=== PATIENT | female | born 1970 | race Caucasian/White ===

== ENCOUNTER 2016-12-06 21:25 | Emergency (ER) | payer SELFPAY ==
[2016-12-06 21:35] VITALS: BP 178/101; PULSE 95; RESP 20; TEMP 98.1; O2SAT 100
[2016-12-06] MEDS ORDERED: Lidocaine 2% Inj (20ml) INFIL ONE (22:08)
--- NOTE | 2016-12-06 22:51 | C.PDOC ---
History Of Present Illness 46 year old female presents to the ED for evaluation status post trip and fall one hour prior to arrival. Patient states she tripped over an uneven curb and hit her face, sustaining a laceration to nose, abrasion to left eyebrow, and began to have a nose bleed. She denies LOC, nausea, vomiting, dizziness, neck pain, or other injuries. Time Seen by Provider: 12/06/16 21:54 Chief Complaint (Nursing): ENT Problem History Per: Patient History/Exam Limitations: None Onset/Duration Of Symptoms: Hrs (1 hour [employer] ) Current Symptoms Are (Timing): Still Present Anticoagulant/Antiplatlet Use?: No Recent Aspirin Use: No Past Medical History Reviewed: Historical Data, Nursing Documentation, Vital Signs Vital Signs: Last Vital Signs Temp 98.1 F 12/06/16 21:28 Pulse 95 H 12/06/16 21:28 Resp 20 12/06/16 23:56 BP 178/101 H 12/06/16 21:28 Pulse Ox 100 12/07/16 01:11 - Medical History PMH: HTN Family History: States: Unknown Family Hx - Social History Hx Alcohol Use: No Hx Substance Use: No - Immunization History Hx Tetanus Toxoid Vaccination: No Hx Influenza Vaccination: No Hx Pneumococcal Vaccination: No Review Of Systems Constitutional: Negative for: Fever, Chills Eyes: Negative for: Vision Change ENT: Positive for: Other (nose bleed ) Gastrointestinal: Negative for: Nausea, Vomiting Skin: Positive for: Other (laceration to nose and abrasion above left eyebrow ) Neurological: Negative for: Dizziness Physical Exam - Physical Exam Appears: Non-toxic, No Acute Distress Skin: Warm, Dry Head: Abrasion (2 cm abrasion above left eyebrow ), Laceration (2 cm laceration to nasal bridge) Eye(s): bilateral: Normal Inspection, PERRL, EOMI Ear(s): Bilateral: Normal Nose: Epistaxis (bilateral nares ) Oral Mucosa: Moist Throat: Normal, No Erythema, No Exudate Neck: Normal ROM, No Midline Cervical Tenderness, No Paracervical Tenderness, Supple Chest: Symmetrical, No Deformity Cardiovascular: Rhythm Regular, No Murmur Respiratory: No Rales, No Rhonchi, No Wheezing Extremity: Normal ROM, No Tenderness, No Swelling Neurological/Psych: Oriented x3, Normal Speech, Normal Cranial Nerves, Normal Motor, Normal Sensation Gait: Steady ED Course And Treatment O2 Sat by Pulse Oximetry: 100 (RA) Pulse Ox Interpretation: Normal - Other Rad Nasal Bone X-Ray X-Ray: Interpreted by Me, Viewed By Me Interpretation: Positive nasal fracture. Progress Note: Patient was given augmentin and motrin. X-Ray of the nasal bones was ordered. Following laceration repair, bacitracin was applied. Laceration - Laceration Repair Left eyebrow Wound Length (In cm): 2 cm Description Of Wound: Linear Wound Cleansed With: Betadine, Sterile Saline Anesthesia: Lidocaine 2% Wound Examination: Irrigated With Saline, No FB With Wound Exploration, No Tendon Injury With Wound Exploration Wound Debridement/Revision: Wound Debrided, Wound Margins Revised Wound Closure: Steri Strips, Skin Glue, Suture (3 ) Suture Technique And Material Used: Running Wound Complexity: Simple Disposition - Disposition Referrals: Alicia Thomas DMD [Staff Provider] - Disposition: HOME/ ROUTINE Disposition Time: 23:40 Condition: GOOD Additional Instructions: Follow up with the medical doctor within 1- 2 days without fail. return if worsened Prescriptions: Amoxicillin/Clavulanate [Augmentin 875 MG-125 MG] 1 tab PO BID #14 tab Ibuprofen [Motrin] 600 mg PO TID #21 tab Loratadine [Claritin] 10 mg PO DAILY #10 tab Instructions: Nasal Fracture (ED) Forms: [facility] (Albanian) - Clinical Impression Clinical Impression: Nasal fracture, Nasal laceration, Epistaxis - PA / SPEECH AND LANGUAGE TUTOR / Resident Statement MD/DO has reviewed & agrees with the documentation as recorded. - Scribe Statement The provider has reviewed the documentation as recorded by the Scribsj Gates All medical record entries made by the Michelleibe were at my direction and personally dictated by me. I have reviewed the chart and agree that the record accurately reflects my personal performance of the history, physical exam, medical decision making, and the department course for this patient. I have also personally directed, reviewed, and agree with the discharge instructions and disposition.
[2016-12-06] MEDS ORDERED: Lidocaine 2% Inj (20ml) ONE (23:03)
[2016-12-06] MEDS ORDERED: Amoxicillin-Clav 875-125 mg Tab PO STA (23:42)
[2016-12-06] MEDS ORDERED: Bacitracin 500 Units/gm Oint Foilpak UD TOP ONE (23:43)
[2016-12-06] MEDS ORDERED: Bacitracin 500 Units/gm Oint Foilpak UD ONE (23:48)
[2016-12-06] MEDS ORDERED: Amoxicillin-Clav 875-125 mg Tab PO ONE (23:48)
--- NOTE | 2016-12-07 14:24 | RAD ---
PROCEDURE: Radiographs of Nasal Bones HISTORY: nasal injury COMPARISON: None available. TECHNIQUE: Frontal and lateral radiographs of the nasal bones. FINDINGS: Suspicious for mildly angulated fracture at the distal nasal bone. IMPRESSION: Suspicious for nasal bone fracture.
== END 2016-12-06 23:56 | disposition home or self-care (01) ==
LOC: C.ER 21:25
DX: S01.21XA Laceration without foreign body of nose, initial encounter (principal); S02.2XXA Fracture of nasal bones, initial encounter for closed fracture; W01.0XXA Fall on same level from slipping, tripping and stumbling without subsequent striking against object, initial encounter; R04.0 Epistaxis